=== PATIENT | male | born 1935 | race Caucasian/White ===

== ENCOUNTER 2025-02-01 06:37 | Day surgery (SDC) | payer MEDICARE ==
[2025-02-01] VITALS (7 sets, daily range): BP systolic 116–147; BP diastolic 71–82; PULSE 68–89; RESP 12–18; TEMP 97.9; O2SAT 93–98
[~2025-02-01] VITALS: Ht 175.3 cm; Wt 70.8 kg
[~2025-02-01 06:37] MED LIST: ASPI-611 PO; ATOR40TA71 PO; LIDOcaine 2% Viscous 15ml cup MM ONE; ringers solution, lacted 1,000 ML IV SCH
[2025-02-01] MEDS ORDERED: midazolam 1 mg/ML 2ml injection ONE (08:40)
[2025-02-01] MEDS ORDERED: fentaNYL/PF 50MCG/1 ML 2ML syringe ONE (08:40)
[2025-02-01] MEDS ORDERED: LIDOcaine 2% (20mg/ml) 5ml vial ONE (08:51)
[2025-02-01] MEDS ORDERED: propofol inj 20 ML IV ONE (08:52)
== END 2025-02-01 09:36 | disposition home or self-care (01) ==
LOC: GI LAB 06:37
PROVIDERS: ATTEND Internal Medicine Gastroenterology
DX: R13.19 Other dysphagia (principal); K44.9 Diaphragmatic hernia without obstruction or gangrene; K21.9 Gastro-esophageal reflux disease without esophagitis; Z86.73 Personal history of transient ischemic attack (TIA), and cerebral infarction without residual deficits; Z79.82 Long term (current) use of aspirin; Z79.899 Other long term (current) drug therapy; Z90.49 Acquired absence of other specified parts of digestive tract; Z88.0 Allergy status to penicillin; Z88.1 Allergy status to other antibiotic agents; Z88.5 Allergy status to narcotic agent
CPT/HCPCS: 43239; 88305; 88342; A4618; A4620; J2003; J2250; J2704; J3010; J7120; Z7512; Z7610